=== PATIENT | male | born 1960 | race Two or more races ===

== ENCOUNTER 2022-07-16 15:05 | Emergency (ER) | payer BC, OTHER ==
[~2022-07-16] VITALS: Ht 175.3 cm; Wt 100.0 kg
[2022-07-16 16:29] VITALS: BP 149/78
[2022-07-16] MEDS ORDERED: TRAM-297 PO (18:51)
== END 2022-07-16 18:45 | disposition home or self-care (01) ==
LOC: ER 15:05
DX: M54.16 Radiculopathy, lumbar region (principal); Z88.2 Allergy status to sulfonamides
CPT/HCPCS: 72131